=== PATIENT | female | born 1960 | race Caucasian/White ===

== ENCOUNTER → 2016-07-25 | Outpatient (CLI) | payer MEDICARE ==
[~2016-07-25] MED LIST: AMITRIPTYLINE10 MG PO; ASPIR 8181 MG PO; ASPIRIN 325MG325 MG PO; CELEBREX 100MG100 MG PO; CELEBREX 200MG200 MG PO; DIAZEPAM10 MG PO; ESTRADIOL1 M1 PO; HYDROCODONE BIT PO; HYDROXYZINE50 MG PO; KEFLEX 500MG.500 MG PO; LASIX 40MG. TAB40 MG PO; LORTAB 10/3251 TAB PO; MELOXICAM15 MG PO; MOBIC7.5 MG PO; OMEPRAZOLE20 MG PO; PREDNISONE 20MG20 MG PO
--- NOTE | 2016-07-26 05:46 | RADIOLOGY REPORT PS360 ---
CT SINUS (MAX-FACIAL W/O CONT) CLINICAL INDICATION: RECURRENT SINUSITIS, CHRONIC RHINITIS ORDERING PHYSICIAN: Abhishek Otrega MD PATIENT AGE: 56 years COMPARISON: None TECHNIQUE:Axial, sagittal, and coronal images are generated and reviewed without contrast FINDINGS: No sinus air-fluid level apparent. Minimal mucosal thickening involves posterior aspect of the right maxillary sinus suggesting a small retention cyst at 7 mm. No other significant mucosal thickening evident. The right ostomy or complex is patent. Left ostomy or complex is narrowed or mucous or edema. Unremarkable orbits. Scattered small lymph nodes are present in the neck which are nonspecific. Minimal osteoarthritic change of the left TMJ. IMPRESSION: 1. Small right maxillary sinus retention cyst at [address] negative [address] sinuses. 3. Minimal left TMJ osteoarthritic change. 4. Mild rightward nasal septal deviation
== END ==
LOC: RAD 15:30
DX: J32.9 Chronic sinusitis, unspecified (principal); J31.0 Chronic rhinitis